=== PATIENT | male | born 1955 | race Native Hawaiian/Other Pacific Islander ===

== ENCOUNTER 2019-03-23 20:27 | Emergency (ER) | payer BC ==
[~2019-03-23] VITALS: Ht 170.2 cm; Wt 72.6 kg
[2019-03-23 21:47] LABS: PLATELET COUNT 303 K/uL (142-355)
[2019-03-23 21:48] LABS: POTASSIUM 4.1 mmol/L (3.6-5.2)
[2019-03-23 23:43] VITALS: BP 158/91
== END 2019-03-24 02:51 | disposition home or self-care (01) ==
LOC: ED 20:27
PROVIDERS: Emergency Medicine
DX: N20.0 Calculus of kidney (principal); Z87.442 Personal history of urinary calculi
CPT/HCPCS: 80053; 81000; 85027; 96366; 96374; 96375; 99284; J1170; J1815; J1885; J2270; J2405; J7120

== ENCOUNTER 2020-05-27 08:46 | Outpatient (CLI) | payer BC | END 2020-05-27 20:32 | disposition home or self-care (01) | LOC: MRI 08:46 | DX: M51.27 Other intervertebral disc displacement, lumbosacral region (principal) ==